=== PATIENT | male | born 1980 | race Caucasian/White ===

== ENCOUNTER 2017-02-19 15:28 | Emergency (ER) | payer OTHER ==
[~2017-02-19 15:28] MED LIST: NORCO 5/325 TAB1 TAB PO
[2017-02-19] MEDS ORDERED: NEOMYCIN-POLYMY10 M5 RIGHT EAR (17:44)
== END 2017-02-19 17:52 ==
LOC: EDMED 15:28
DX: H66.91 Otitis media, unspecified, right ear (principal)